=== PATIENT | male | born 1945 | race Caucasian/White ===

== ENCOUNTER 2017-04-29 13:02 | Observation (INO) ==
[2017-04-29] MEDS ORDERED: 0.9 % Sodium Chloride 1,000 ML IVC ONE (13:11)
--- NOTE | 2017-04-29 13:15 | Emergency Department Note ---
Disposition Clinical Impression: Syncope and collapse, Ataxia, Dehydration Disposition: Admitted As Inpatient Condition: Serious Referrals: Sonu Dudley MD [Primary Care Provider] - Forms: ED Satisfaction Letter Time of Disposition: 14:45 Dizziness HPI - General Chief Complaint: ED Syncope Stated Complaint: syncopal episode Time Seen by Provider: 04/29/17 13:12 Source: patient, family Limitations: no limitations Nursing Notes Reviewed: Yes Vital Signs Reviewed: Yes - History of Present Illness HPI Narrative: 72-year-old male presents to the emergency department with history of falls. He states that when he tries to stand he feels like he is falling towards one side and he has to constantly hold onto something to try to keep himself from falling. Patient has abrasions and contusions localized to the forehead. He is alert he is awake is able to follow commands. Patient reports that his symptoms of dizziness have been ongoing for approximately 2 weeks. Apparently 2 weeks ago he was able to drive a car, however now he reports that he will not drive a car. The passing out episodes have apparently been going on for approximately 2 months per patient Pt Subjective Complaint: dizziness, lightheadedness, difficulty walking Timing: gradual onset Description: lightheadedness, off-balance History of similar episodes: No History of trauma: Yes Severity: moderate Improves with: nothing Worsens with: movement, position Associated symptoms: Reports: denies other symptoms, ataxia. Denies: chest pain , confusion, diaphoresis, fever, chills, malaise, rash, shortness of breath, syncope, weakness, vision changes, nausea, vomiting, palpitations - Related Data Home Medications Medication Instructions Recorded Confirmed Albuterol Sulfate [Ventolin Hfa] 18 gm IH DAILY 04/29/17 04/29/17 Amlodipine Besylate 2.5 mg PO DAILY 04/29/17 04/29/17 Aspirin [Lo-Dose Aspirin EC] 81 mg PO DAILY 04/29/17 04/29/17 Docusate [Colace] 100 mg PO BID 04/29/17 04/29/17 Ferrous Sulfate [Iron] 325 mg PO BID 04/29/17 04/29/17 Gabapentin [Neurontin] 300 mg PO TID 04/29/17 04/29/17 Glimepiride [Amaryl] 2 mg PO 0800 04/29/17 04/29/17 Isosorbide MONOnitrate [Isosorbide 30 mg PO DAILY 04/29/17 04/29/17 Mononitrate] Lactulose 10 gm PO DAILY 04/29/17 04/29/17 Levothyroxine [Synthroid] 100 mcg PO 0630 04/29/17 04/29/17 Lisinopril/Hydrochlorothiazide 2 each PO DAILY 04/29/17 04/29/17 [Zestoretic 10-12.5 mg Tablet] Metformin HCl [Fortamet] 1,000 mg PO BID 04/29/17 04/29/17 Metoprolol Tartrate 25 mg PO BID 04/29/17 04/29/17 Oxycodone HCl/Acetaminophen 1 each PO QID 04/29/17 04/29/17 [Percocet 7.5-325 mg Tablet] Allergies Allergy/AdvReac Type Severity Reaction Status Date / Time No Known Allergies Allergy Unverified 12/20/15 11:30 All systems ED: reviewed and negative except as stated. Neurological: Reports: weakness, confusion, other (Patient complains of dizziness) Past Medical History - Past Medical History Medical history: Reports: asthma, COPD, coronary artery disease, diabetes, hyperlipidemia, hypertension, myocardial infarction, thyroid disease, other Psychiatric history: Reports: no psych history - Social History Smoking Status: Former smoker Smokeless Tobacco Status: No Alcohol use: Reports: occasionally Drug use: Reports: none Physical Exam - General Limitations: no limitations General appearance: alert - Head Head exam: other (Patient has abrasions to his forehead) - Eye Eye exam: Present: normal appearance - ENT ENT exam: normal exam, normal oropharynx, mucous membranes moist - Neck Neck exam: Present: normal inspection, full ROM, trachea midline - Chest Chest inspection: Present: normal inspection, symmetric chest wall rise - Respiratory Respiratory exam: Present: normal lung sounds bilaterally - Cardiovascular Cardiovascular exam: Present: regular rate, normal rhythm - Abdominal Exam Abdominal exam: Present: soft, Non-Tender, tenderness. Absent: distention, guarding, rebound, rigidity, normal bowel sounds, diminished bowel sounds, obturator sign - Extremities Exam Extremities exam: Present: normal inspection - Expanded Lower Extremity Exam Hip/Pelvis exam: Present: normal inspection - Back Exam Back exam: Present: normal inspection - Neurological Exam Neurological exam: Present: alert, oriented X3, CN II-XII intact, other ( Patient does have some mild weakness to the right upper extremity in comparison to the left) - Psychiatric Psychiatric exam: Present: flat affect - Skin Skin exam: Present: warm, dry, intact Course Vital Signs Temperature 98.3 F 04/29/17 13:03 Pulse Rate 86 04/29/17 13:03 Respiratory Rate 18 04/29/17 13:03 Blood Pressure 141/68 04/29/17 13:03 O2 Sat by Pulse Oximetry 100 04/29/17 13:03 Temperature 98.3 F 04/29/17 13:03 Pulse Rate 78 04/29/17 13:56 Respiratory Rate 18 04/29/17 13:56 Blood Pressure 116/59 04/29/17 13:56 O2 Sat by Pulse Oximetry 98 04/29/17 13:56 Oxygen Delivery Oxygen Delivery Nasal Cannula Dizziness - MDM Narrative Medical decision making narrative: I ordered ABG on the patient but he refused the blood gas even after I went in there to try to explain to him that his carbon monoxide level could be elevated and he still refused to allow us to draw it. - Differential Diagnosis Likely: benign paroxysmal positional vertigo, orthostatic hypotension, vertebral basilar insufficiency, cerebrovascular accident - Medical Records Medical records reviewed: Yes I reviewed the patient's medical records. - Lab Data Lab results reviewed: Yes I reviewed the patient's lab results. Result diagrams: 04/29/17 13:15 04/29/17 13:15 Lab Results 04/29/17 04/29/17 04/29/17 Range/Units 13:15 13:15 13:15 WBC 10.4 (4.3-11.1) K/mcL RBC 3.77 L (4.19-5.50) M/mcL Hgb 11.2 L (12.9-16.9) g/dL Hct 33.3 L (37.5-50.1) % MCV 88.3 (83.0-100.0) fL MCH 29.7 (28.0-33.3) pg MCHC 33.6 (31.6-35.5) g/dL RDW 13.8 (11.5-14.5) % Plt Count 354 (140-400) K/mcL MPV 9.3 L (9.4-12.4) fL Immature Gran % 0.5 (0-4) % Seg Neutrophils % 79.2 % Lymphocytes % 11.3 % Monocytes % 8.1 % Eosinophils % 0.5 % Basophils % 0.4 % Neutrophils # 8.2 (1.6-8.9) K/mcL Lymphocytes # 1.2 (0.6-4.6) K/mcL Monocytes # 0.8 (0.0-1.3) K/mcL Eosinophils # 0.1 (0.0-0.6) K/mcL Basophils # 0.0 (0.0-0.2) K/mcL PT 10.4 (9.4-12.1) Seconds INR 1.0 APTT 28.9 (26.0-36.0) Seconds Sodium 142 (136-145) mEq/L Potassium 3.9 (3.5-5.1) mEq/L Chloride 107 (98-107) mEq/L Carbon Dioxide 27 (23-29) mEq/L BUN 65 H (8-23) mg/dL Creatinine 1.84 H (0.70-1.30) mg/dL Est GFR ( Amer) 44 L (> 60) Est GFR (Non-Af Amer) 36 L (> 60) BUN/Creatinine Ratio 35 H (6-26) Glucose 124 H (70-105) mg/dL Calculated Osmolality 314 H (280-300) Lactic Acid (0.5-2.2) mmol/L Calcium 9.4 (8.6-10.3) mg/dL Ammonia (16-53) mcmol/L Troponin I < 0.03 (< 0.04) ng/mL B-Natriuretic Peptide (Less than 100) pg/mL Urine Color (Yellow) Urine Clarity (Clear) Urine pH (5.0-8.0) pH Units Ur Specific [place] (1.010-1.025) Urine Protein (Neg-Trace) mg/dL Urine Glucose (UA) (Normal) mg/dL Urine Ketones (Negative) mg/dL Urine Blood (Negative) Urine Nitrite (Negative) Urine Bilirubin (Negative) Urine Urobilinogen (Normal) mg/dL Ur Leukocyte Esterase (Negative) Ur Culture Indicated? (NO) 04/29/17 04/29/17 04/29/17 Range/Units 13:15 13:20 13:40 WBC (4.3-11.1) K/mcL RBC (4.19-5.50) M/mcL Hgb (12.9-16.9) g/dL Hct (37.5-50.1) % MCV (83.0-100.0) fL MCH (28.0-33.3) pg MCHC (31.6-35.5) g/dL RDW (11.5-14.5) % Plt Count (140-400) K/mcL MPV (9.4-12.4) fL Immature Gran % (0-4) % Seg Neutrophils % % Lymphocytes % % Monocytes % % Eosinophils % % Basophils % % Neutrophils # (1.6-8.9) K/mcL Lymphocytes # (0.6-4.6) K/mcL Monocytes # (0.0-1.3) K/mcL Eosinophils # (0.0-0.6) K/mcL Basophils # (0.0-0.2) K/mcL PT (9.4-12.1) Seconds INR APTT (26.0-36.0) Seconds Sodium (136-145) mEq/L Potassium (3.5-5.1) mEq/L Chloride (98-107) mEq/L Carbon Dioxide (23-29) mEq/L BUN (8-23) mg/dL Creatinine (0.70-1.30) mg/dL Est GFR ( Amer) (> 60) Est GFR (Non-Af Amer) (> 60) BUN/Creatinine Ratio (6-26) Glucose (70-105) mg/dL Calculated Osmolality (280-300) Lactic Acid 1.2 (0.5-2.2) mmol/L Calcium (8.6-10.3) mg/dL Ammonia 34 (16-53) mcmol/L Troponin I (< 0.04) ng/mL B-Natriuretic Peptide 73 (Less than 100) pg/mL Urine Color (Yellow) Urine Clarity (Clear) Urine pH (5.0-8.0) pH Units Ur Specific [place] (1.010-1.025) Urine Protein (Neg-Trace) mg/dL Urine Glucose (UA) (Normal) mg/dL Urine Ketones (Negative) mg/dL Urine Blood (Negative) Urine Nitrite (Negative) Urine Bilirubin (Negative) Urine Urobilinogen (Normal) mg/dL Ur Leukocyte Esterase (Negative) Ur Culture Indicated? (NO) 04/29/17 Range/Units 14:06 WBC (4.3-11.1) K/mcL RBC (4.19-5.50) M/mcL Hgb (12.9-16.9) g/dL Hct (37.5-50.1) % MCV (83.0-100.0) fL MCH (28.0-33.3) pg MCHC (31.6-35.5) g/dL RDW (11.5-14.5) % Plt Count (140-400) K/mcL MPV (9.4-12.4) fL Immature Gran % (0-4) % Seg Neutrophils % % Lymphocytes % % Monocytes % % Eosinophils % % Basophils % % Neutrophils # (1.6-8.9) K/mcL Lymphocytes # (0.6-4.6) K/mcL Monocytes # (0.0-1.3) K/mcL Eosinophils # (0.0-0.6) K/mcL Basophils # (0.0-0.2) K/mcL PT (9.4-12.1) Seconds INR APTT (26.0-36.0) Seconds Sodium (136-145) mEq/L Potassium (3.5-5.1) mEq/L Chloride (98-107) mEq/L Carbon Dioxide (23-29) mEq/L BUN (8-23) mg/dL Creatinine (0.70-1.30) mg/dL Est GFR ( Amer) (> 60) Est GFR (Non-Af Amer) (> 60) BUN/Creatinine Ratio (6-26) Glucose (70-105) mg/dL Calculated Osmolality (280-300) Lactic Acid (0.5-2.2) mmol/L Calcium (8.6-10.3) mg/dL Ammonia (16-53) mcmol/L Troponin I (< 0.04) ng/mL B-Natriuretic Peptide (Less than 100) pg/mL Urine Color Light Yellow (Yellow) Urine Clarity Clear (Clear) Urine pH 5.5 (5.0-8.0) pH Units Ur Specific [place] 1.010 (1.010-1.025) Urine Protein Negative (Neg-Trace) mg/dL Urine Glucose (UA) Normal (Normal) mg/dL Urine Ketones Negative (Negative) mg/dL Urine Blood Negative (Negative) Urine Nitrite Negative (Negative) Urine Bilirubin Negative (Negative) Urine Urobilinogen Normal (Normal) mg/dL Ur Leukocyte Esterase Negative (Negative) Ur Culture Indicated? NO (NO) - Radiology Data Radiology results reviewed: Yes I reviewed the patient's radiology results. No acute process on patient's CT of head without contrast chest x-ray shows a possible infiltrate in the right middle lobe of line per radiology reading. - EKG Data EKG attestation: Yes I reviewed and interpreted this EKG. EKG results narrative: EKG is a normal sinus rhythm EKG EKG shows normal: sinus rhythm Rate: normal
[2017-04-29 13:33] LABS: Basophils % 0.4 %; Eosinophils # 0.1 K/mcL (0.0-0.6); Eosinophils % 0.5 %; Hematocrit 33.3 % (37.5-50.1); Hemoglobin 11.2 g/dL (12.9-16.9); Immature Granulocytes % 0.5 % (0-4); Lymphocytes # 1.2 K/mcL (0.6-4.6); Lymphocytes % 11.3 %; Mean Corpuscular HGB Conc 33.6 g/dL (31.6-35.5); Mean Corpuscular Hemoglobin 29.7 pg (28.0-33.3); Mean Corpuscular Volume 88.3 fL (83.0-100.0); Mean Platelet Volume 9.3 fL (9.4-12.4); Monocytes # 0.8 K/mcL (0.0-1.3); Monocytes % 8.1 %; Neutrophils # 8.2 K/mcL (1.6-8.9); Platelet Count 354 K/mcL (140-400); Red Blood Count 3.77 M/mcL (4.19-5.50); Red Cell Distribution Width 13.8 % (11.5-14.5); Segmented Neutrophils % 79.2 %
[2017-04-29 13:34] LABS: Prothrombin Time 10.4 Seconds (9.4-12.1)
[2017-04-29 13:37] LABS: Activated Partial Thrombo Time 28.9 Seconds (26.0-36.0)
[2017-04-29 13:42] LABS: BUN/Creatinine Ratio 35 (6-26); Blood Urea Nitrogen 65 mg/dL (8-23); Calcium 9.4 mg/dL (8.6-10.3); Carbon Dioxide 27 mEq/L (23-29); Chloride 107 mEq/L (98-107); Glucose 124 mg/dL (70-105); Osmolality,Calculated 314 (280-300); Potassium 3.9 mEq/L (3.5-5.1); Sodium 142 mEq/L (136-145); eGFR For African Americans 44 (> 60); eGFR For Non-African Americans 36 (> 60)
[2017-04-29 13:46] LABS: Troponin I < 0.03 ng/mL (< 0.04)
[2017-04-29 14:22] LABS: Bilirubin,Urine Negative (Negative); Blood,Urine Negative (Negative); Clarity,Urine Clear (Clear); Color,Urine Light Yellow (Yellow); Glucose,Urine (UA) Normal (Normal); Ketones,Urine Negative (Negative); Leukocyte Esterase,Urine Negative (Negative); Nitrite,Urine Negative (Negative); PH,Urine 5.5 pH Units (5.0-8.0); Protein,Urine Negative (Neg-Trace); Urobilinogen,Urine Normal (Normal)
[2017-04-29] MEDS ORDERED: Naloxone 0.4 MG/ML INJ IVP PRN ×2 (14:38→16:53)
[2017-04-29] MEDS ORDERED: 0.9 % Sodium Chloride 1,000 ML IVC SCH (14:45)
[2017-04-29] MEDS ORDERED: cefTRIAXone 2,000 MG in Water for inj. (sterile) 20 ML IVP SCH (15:00)
[2017-04-29] MEDS: *HR* OxyCODONE/APAP 7.5/325 TABLET PO SCH (17:25)
[2017-04-29] MEDS: Gabapentin 300 MG CAPSULE PO SCH ×2 (17:26→19:52)
[2017-04-29] MEDS: 0.9 % Sodium Chloride 1,000 ML IVC SCH (17:27)
[2017-04-29] MEDS ORDERED: Albuterol 2.5 MG/3 ML NEBULIZER ONE (19:04)
[2017-04-29] MEDS: Albuterol 2.5 MG/3 ML NEBULIZER IH PRN (19:22)
--- NOTE | 2017-04-29 20:45 | Electrocardiograph Report ---
[address] [place], [place] [address] Test Date: 2017-04-29 Pat Name: Ashlyn Hernández Department: [id number] Room: [facility] Gender: M [employer] Supervisor: [id number] : 1945 Requested By: Edith Zaman Order Number: [id number] Reading MD: Moises Dick MD Measurements Intervals [place] Rate: 69 P: 83 ME: 179 QRS: 14 QRSD: 102 T: 43 QT: 358 QTc: 377 Interpretive Statements SINUS RHYTHM LOW QRS VOLTAGE IN PRECORDIAL LEADS BASELINE ARTIFACT Electronically Signed On 04-29-2017 20:43:30 EDT by Moises Dick MD
[2017-04-29] MEDS ORDERED: *HR* Metformin 500 MG TABLET PO SCH (21:00)
[2017-04-30] MEDS: *HR* OxyCODONE/APAP 7.5/325 TABLET PO SCH ×6 (01:11→20:36)
[2017-04-30] MEDS: 0.9 % Sodium Chloride 1,000 ML IVC SCH (04:37)
[2017-04-30] MEDS: Albuterol 2.5 MG/3 ML NEBULIZER IH PRN ×3 (06:16→21:54)
[2017-04-30] MEDS: *HR* Metformin 500 MG TABLET PO SCH ×2 (08:43→17:34)
[2017-04-30] MEDS: *HR* Glimepiride 2 MG TABLET PO SCH (08:43)
[2017-04-30] MEDS: Isosorbide MONOnitrate (24 HR) 30 MG TAB.ER.24H PO SCH (08:44)
[2017-04-30] MEDS: Lactulose Oral Soln 20 GM/30 ML UDC PO SCH (08:45)
[2017-04-30] MEDS: Gabapentin 300 MG CAPSULE PO SCH ×3 (08:46→20:35)
[2017-04-30] MEDS ORDERED: amLODIPine 5 MG TABLET PO SCH (09:00)
[2017-04-30] MEDS ORDERED: Aspirin Enteric Coated 81 MG Tablet PO SCH (09:00)
--- NOTE | 2017-04-30 12:07 | Internal Med History&Physical ---
Date of Encounter: 04/30/17 Time of Encounter: 11:40 Assessment and Plan (1) Near syncope Current visit: Yes Status: Acute IV fluids have been ordered. Will check orthostatic vital signs in a.m. (2) Acute on chronic renal failure Current visit: Yes Status: Acute Will hold diuretics and give IV fluids. Recheck labs and do orthostatic vital signs in a.m. Qualifiers: Acute renal failure type: unspecified Chronic kidney disease stage: stage 3 (moderate) Qualified Code(s): N17.9 - Acute kidney failure, unspecified; N18.3 - Chronic kidney disease, stage 3 (moderate); N18.3 - Chronic kidney disease, stage 3 (moderate) (3) Anemia Current visit: Yes Status: Chronic Will order iron studies in a.m. Qualifiers: Anemia type: unspecified type Qualified Code(s): D64.9 - Anemia, unspecified (4) Hypertension Current visit: Yes Status: Acute Will hold Zestoretic because of acute azotemia and monitor blood pressure. Qualifiers: Hypertension type: essential hypertension Qualified Code(s): I10 - Essential (primary) hypertension (5) Neutrophilia Current visit: Yes Status: Acute Chest x-ray showed possible right lower lobe infiltrate. Continue Rocephin started in emergency room. Internal Medicine - H&P: HPI Chief complaint: Lightheadedness Admitted From: Emergency Dept Plans for Post Hospital Care: Home History of present illness: Mr. Hernández is a 72 year old male who came to emergency room stating he had experienced lightheadedness on arising from a seated position with sensation of fevers and chills approximately 2 hours after receiving orthopedic injections into his right shoulder area on April 25. He was evaluated in emergency room and found to have acute on chronic renal insufficiency and slight left shift on WBC differential. He was admitted to [facility] floor for ongoing care needs. He denies unusual cough or any vomiting or diarrhea. He has had no recent change in hypertension medications. Cardiovascular history is significant for hypertension but no known AL heart failure angina DVT or pulmonary embolus. Neurologic history is pertinent for diabetic peripheral neuropathy but no large distribution strokes or seizures. Past Med Surg Social Fam HX - Past Medical History Medical history: asthma, COPD, coronary artery disease, diabetes, hyperlipidemia , hypertension, myocardial infarction, thyroid disease, other Psychiatric history: no psych history - Social History Smoking Status: Former smoker Smokeless Tobacco Status: No Alcohol use: occasionally Drug use: none Internal Medicine - H&P: Meds Albuterol Sulfate [Ventolin Hfa] 18 gm IH DAILY 04/29/17 [History] Amlodipine Besylate 2.5 mg PO DAILY 04/29/17 [History] Aspirin [Lo-Dose Aspirin EC] 81 mg PO DAILY 04/29/17 [History] Docusate [Colace] 100 mg PO BID 04/29/17 [History] Ferrous Sulfate [Iron] 325 mg PO BID 04/29/17 [History] Gabapentin [Neurontin] 300 mg PO TID 04/29/17 [History] Glimepiride [Amaryl] 2 mg PO 0800 04/29/17 [History] Isosorbide MONOnitrate [Isosorbide Mononitrate] 30 mg PO DAILY 04/29/17 [History ] Lactulose 10 gm PO DAILY 04/29/17 [History] Levothyroxine [Synthroid] 100 mcg PO 0630 04/29/17 [History] Lisinopril/Hydrochlorothiazide [Zestoretic 10-12.5 mg Tablet] 2 each PO DAILY [History] Metformin HCl [Fortamet] 1,000 mg PO BID 04/29/17 [History] Metoprolol Tartrate 25 mg PO BID 04/29/17 [History] Oxycodone HCl/Acetaminophen [Percocet 7.5-325 mg Tablet] 1 each PO QID 04/29/17 [History] 3 Allergy/AdvReac Type Severity Reaction Status Date / Time No Known Allergies Allergy Unverified 12/20/15 11:30 All Systems PM: A 10-system review of systems was performed and is negative for pertinent findings except as documented above in the HPI. Review of systems: Gen.: He states his weight has decreased approximately 10 pounds in the past year Cardiovascular: As per history of present illness Respiratory: He smoked from approximately age [age] up to 2-1/2 packs per day. Has a diagnosis of COPD and wears oxygen / GI: He denies disorders of his liver gallbladder or exocrine pancreas : He has been diagnosed with chronic kidney disease and follows with a [place] safety and health consultant. He denies other kidney bladder or prostate disorders Neurologic: As per history of present illness Endocrine: He was diagnosed with DM 2 approximately 2012. He has hypothyroidism but denies hyperlipidemia Hematology/oncology: He has anemia and uses oral iron supplement. Anemia testing 02/20/2017 showed no fracture deficiency. He denies internal malignancy Psychiatric: He has depression but denies anxiety or other mental health issues [place] skeletal: He had left knee surgery many years ago. He denies other bone joint or muscle disorders. - Constitutional Vitals: Temp Pulse Resp BP Pulse Ox 98.9 F 77 22 122/64 97 04/30/17 11:25 04/30/17 11:25 04/30/17 11:25 04/30/17 11:25 04/30/17 11:25 Exam: Gen.: He is a well-developed overweight male sitting on the side of bed who appears in no acute distress. He denies pain or dyspnea HEENT: Head is normocephalic. He has areas of abrasion on his forehead and bridge of the nose from a fall on the carpet at home. Eyes: EOMI. There is no scleral icterus. Mouth: Mucosa is moist. Neck: Supple and nontender. There is no thyromegaly or adenopathy noted. Heart: regular without murmurs gallops or ectopics Lungs: No wheezes or crackles are heard. Abdomen: Soft and nontender. No masses or guarding are noted. Exam is limited because he is in the seated position. Extremities: There is no cyanosis edema or clubbing noted. Dorsalis pedis and posttibial pulses are 1-2 over 2 bilaterally. Neurologic: Mental status: He is talkative and a good historian. Cranial nerves : Smile is symmetric. Forehead wrinkles bilaterally. Tongue protrudes midline. EOMI. Motor: There is no pronator drift. Cerebellar: Finger to nose is intact bilaterally. Skin: Warm and dry Internal Med - H&P Results - Labs CBC & Chem 7: 04/29/17 13:15 04/29/17 13:15
[2017-04-30] MEDS: 0.45 % Sodium Chloride w/KCl 20 MEQ/1,000 ML MLS IVC SCH ×2 (14:07→22:10)
[2017-04-30] MEDS ORDERED: cefTRIAXone 2,000 MG in Water for inj. (sterile) 20 ML IVP SCH (15:00)
[2017-04-30] MEDS: Lactobacillus 1 EACH CAP.SPRINK PO SCH (20:35)
[2017-05-01] MEDS: Albuterol 2.5 MG/3 ML NEBULIZER IH PRN (04:50)
[2017-05-01] MEDS ORDERED: *HR* Enoxaparin 40 MG/0.4 ML SYRINGE SQ SCH (06:00)
[2017-05-01 06:03] LABS: Basophils # 0.1 K/mcL (0.0-0.2); Basophils % 0.5 %; Eosinophils # 0.6 K/mcL (0.0-0.6); Eosinophils % 4.1 %; Hematocrit 33.5 % (37.5-50.1); Hemoglobin 11.2 g/dL (12.9-16.9); Immature Granulocytes % 0.3 % (0-4); Lymphocytes # 1.5 K/mcL (0.6-4.6); Lymphocytes % 10.8 %; Mean Corpuscular HGB Conc 33.4 g/dL (31.6-35.5); Mean Corpuscular Hemoglobin 29.7 pg (28.0-33.3); Mean Corpuscular Volume 88.9 fL (83.0-100.0); Mean Platelet Volume 8.9 fL (9.4-12.4); Monocytes % 7.3 %; Neutrophils # 10.4 K/mcL (1.6-8.9); Platelet Count 348 K/mcL (140-400); Red Blood Count 3.77 M/mcL (4.19-5.50); Red Cell Distribution Width 13.6 % (11.5-14.5)
[2017-05-01] MEDS: 0.45 % Sodium Chloride w/KCl 20 MEQ/1,000 ML MLS IVC SCH (06:42)
[2017-05-01 07:28] VITALS: BP 192/71
[2017-05-01 07:40] LABS: BUN/Creatinine Ratio 28 (6-26); Blood Urea Nitrogen 37 mg/dL (8-23); Calcium 9.4 mg/dL (8.6-10.3); Carbon Dioxide 22 mEq/L (23-29); Chloride 106 mEq/L (98-107); Glucose 102 mg/dL (70-105); Osmolality,Calculated 293 (280-300); Potassium 4.5 mEq/L (3.5-5.1); Sodium 137 mEq/L (136-145); eGFR For African Americans > 60 (> 60); eGFR For Non-African Americans 54 (> 60)
[2017-05-01 09:32] LABS: % Iron Saturation 24 % (20-55); Ferritin 89 ng/ml (20-250); Iron 78 mcg/dL (65-175); Transferrin 237 mg/dL (203-362)
[2017-05-01] MEDS: Lactulose Oral Soln 20 GM/30 ML UDC PO SCH (09:36)
[2017-05-01] MEDS: Gabapentin 300 MG CAPSULE PO SCH (09:37)
[2017-05-01] MEDS: *HR* Metformin 500 MG TABLET PO SCH (09:37)
[2017-05-01] MEDS: *HR* OxyCODONE/APAP 7.5/325 TABLET PO SCH (09:37)
[2017-05-01] MEDS: Lactobacillus 1 EACH CAP.SPRINK PO SCH (09:37)
[2017-05-01] MEDS: Isosorbide MONOnitrate (24 HR) 30 MG TAB.ER.24H PO SCH (09:38)
[2017-05-01] MEDS: *HR* Glimepiride 2 MG TABLET PO SCH (09:38)
--- NOTE | 2017-05-01 09:54 | Discharge Summary ---
Date of Encounter: 05/01/17 Time of Encounter: 09:40 - Discharge Diagnosis (1) Near syncope Priority: Primary Status: Acute (2) Acute on chronic renal failure Priority: Secondary Status: Acute Qualifiers: Acute renal failure type: unspecified Chronic kidney disease stage: stage 3 (moderate) Qualified Code(s): N17.9 - Acute kidney failure, unspecified; N18.3 - Chronic kidney disease, stage 3 (moderate); N18.3 - Chronic kidney disease, stage 3 (moderate) (3) Anemia Priority: Secondary Status: Chronic Qualifiers: Anemia type: unspecified type Qualified Code(s): D64.9 - Anemia, unspecified (4) Hypertension Priority: Secondary Status: Chronic Qualifiers: Hypertension type: essential hypertension Qualified Code(s): I10 - Essential (primary) hypertension (5) Neutrophilia Priority: Secondary Status: Acute Hospital course: Mr. Hernández is a 72 year old male who came to emergency room stating he had experienced lightheadedness on arising from a seated position with sensation of fevers and chills approximately 2 hours after receiving orthopedic injections into his right shoulder area on April 25. He was evaluated in emergency room and found to have acute on chronic renal insufficiency and slight left shift on WBC differential. He was admitted to [facility] floor for ongoing care needs. Initial orders were written by the emergency room physician. I saw him on April 30 and performed a history and physical. IV fluids were given and Zestoretic and amlodipine were held. There was significant improvement in his azotemia with BUN and creatinine decreasing to 37 and 1.31 respectively by day of discharge with estimated GFR 54. He will remain off Zestoretic at discharge. Metoprolol will be increased to 50 mg twice a day. He was started empirically on Rocephin for possible pneumonia. WBC ingrid slightly to 13.5 on day of discharge. He will continue with Ceftin, Zithromax, and probiotic for 3 additional days at discharge. Anemia testing showed iron 78, transferrin saturation 24%, transferrin 237, and ferritin 89. His PCP and/or fire watcher can determine the need for ongoing oral iron replacement. On May 01 he felt stable for discharge home. He will follow with his PCP Dr. Dudley within 1 week. - Time Spent with Patient Total time spent providing and/or coordinating discharge services: - Discharge Medications Prescriptions: Cefuroxime PO [Ceftin] 500 mg PO Q12HR #6 tablet Azithromycin [Zithromax] 250 mg PO DAILY #3 tablet Lactobacillus [Culturelle] 1 each PO BID #6 cap.[email or web address] Home Medications: Albuterol Sulfate [Ventolin Hfa] 18 gm IH DAILY 04/29/17 [History] Amlodipine Besylate 2.5 mg PO DAILY 04/29/17 [History] Aspirin [Lo-Dose Aspirin EC] 81 mg PO DAILY 04/29/17 [History] Docusate [Colace] 100 mg PO BID 04/29/17 [History] Ferrous Sulfate [Iron] 325 mg PO BID 04/29/17 [History] Gabapentin [Neurontin] 300 mg PO TID 04/29/17 [History] Glimepiride [Amaryl] 2 mg PO 0800 04/29/17 [History] Isosorbide MONOnitrate [Isosorbide Mononitrate] 30 mg PO DAILY 04/29/17 [History ] Lactulose 10 gm PO DAILY 04/29/17 [History] Levothyroxine [Synthroid] 100 mcg PO 0630 04/29/17 [History] Metformin HCl [Fortamet] 1,000 mg PO BID 04/29/17 [History] Oxycodone HCl/Acetaminophen [Percocet 7.5-325 mg Tablet] 1 each PO QID 04/29/17 [History] Azithromycin [Zithromax] 250 mg PO DAILY #3 tablet 05/01/17 [Rx] Cefuroxime PO [Ceftin] 500 mg PO Q12HR #6 tablet 05/01/17 [Rx] Lactobacillus [Culturelle] 1 each PO BID #6 cap.[email or web address] 05/01/17 [Rx] Metoprolol Tartrate 50 mg PO BID #0 05/01/17 [Rx] Allergies/Adverse Reactions: 3 Allergy/AdvReac Type Severity Reaction Status Date / Time No Known Allergies Allergy Unverified 12/20/15 11:30 Date of admission: 04/29/17 14:53 Primary care physician: Sonu Dudley MD - Constitutional Vitals: Temp Pulse Resp BP Pulse Ox 98.3 F 93 16 192/71 99 05/01/17 07:24 05/01/17 07:24 05/01/17 07:24 05/01/17 07:24 05/01/17 07:24 - Patient Status Disposition: Home, Self-Care Condition: Serious Functional capacity at discharge: independent ambulation Overall status at discharge: patient is progressing back to baseline - Discharge Instructions Follow Up With: Sonu Dudley MD [Primary Care Provider] - 1 week - Diet and Activity Activity: resume usual activities as tolerated, wear oxygen at all times Diet: low fat, low cholesterol
== END 2017-05-01 10:50 | disposition home or self-care (01) ==
LOC: EMEROOPIK 13:02 → INPPIK 13:02
PROVIDERS: ADMIT Internal Medicine; ATTEND Internal Medicine

== ENCOUNTER 2019-03-20 09:29 | Inpatient (IN) ==
[2019-03-20] MEDS ORDERED: Ipratropium/Albuterol Neb 3 ML IH ONE (09:37)
[2019-03-20] MEDS ORDERED: methylPREDNISolone 125 MG/2 ML VIAL IVP ONE (09:37)
[2019-03-20 10:00] LABS: Basophils % 0.2 %; Eosinophils % 1.5 %; Hematocrit 30.5 % (37.5-50.1); Hemoglobin 10.3 g/dL (12.9-16.9); Immature Granulocytes % 0.4 % (0-4); Lymphocytes # 0.6 K/mcL (0.6-4.6); Lymphocytes % 3.6 %; Mean Corpuscular HGB Conc 33.8 g/dL (31.6-35.5); Mean Corpuscular Hemoglobin 29.1 pg (28.0-33.3); Mean Corpuscular Volume 86.2 fL (83.0-100.0); Mean Platelet Volume 8.8 fL (9.4-12.4); Monocytes # 0.8 K/mcL (0.0-1.3); Monocytes % 4.9 %; Neutrophils # 14.5 K/mcL (1.6-8.9); Platelet Count 346 K/mcL (140-400); Red Blood Count 3.54 M/mcL (4.19-5.50); Red Cell Distribution Width 13.7 % (11.5-14.5); Segmented Neutrophils % 89.4 %; White Blood Count 16.2 K/mcL (4.3-11.1)
[2019-03-20 10:02] LABS: VBG HCO3 32 mEq/L (21-27); VBG PCO2 59 mmHg (41-51); VBG PH 7.34 pH Units (7.32-7.42); VBG PO2 27 mmHg (25-50)
[2019-03-20 10:10] LABS: Eosinophils # 0.2 K/mcL (0.0-0.6)
[2019-03-20 10:11] LABS: INR 1.1; Prothrombin Time 12.2 Seconds (9.4-12.1)
[2019-03-20 10:16] LABS: Alanine Aminotransferase 17 Units/L (7-52); Albumin 3.8 g/dL (3.5-5.7); Albumin/Globulin Ratio 1.3 (1.1-2.2); Alkaline Phosphatase 58 Units/L (34-104); Aspartate Amino Transferase 18 Units/L (13-39); BUN/Creatinine Ratio 12 (6-26); Bilirubin,Direct 0.1 mg/dL (0.0-0.2); Bilirubin,Indirect 0.4 mg/dL (0.0-1.0); Bilirubin,Total 0.5 mg/dL (0.3-1.0); Blood Urea Nitrogen 15 mg/dL (8-23); Calcium 9.9 mg/dL (8.6-10.3); Carbon Dioxide 32 mEq/L (23-29); Chloride 97 mEq/L (98-107); Globulin 2.9 g/dL (2.4-3.5); Glucose 148 mg/dL (70-105); Osmolality,Calculated 288 (280-300); Potassium 3.4 mEq/L (3.5-5.1); Sodium 137 mEq/L (136-145); Total Protein 6.7 g/dL (6.4-8.9); eGFR For African Americans > 60 (> 60); eGFR For Non-African Americans 54 (> 60)
[2019-03-20 10:18] LABS: Troponin I < 0.03 ng/mL (< 0.04)
[2019-03-20] MEDS ORDERED: levoFLOXacin 750 MG/150 ML 750 MG/150 ML BAG IVPB ONE (10:23)
[2019-03-20 11:45] LABS: ABG Base Excess 6 mEq/L (-2 to 3); ABG HCO3 32 mEq/L (21-27); ABG Oxygen Saturation 90 % (95-98); ABG PCO2 49 mmHg (35-45); ABG PH 7.42 pH Units (7.32-7.45); ABG PO2 59 mmHg (85-104); ABG TCO2 33 mEq/L (20-26)
[2019-03-20] MEDS ORDERED: Albuterol 2.5 MG/3 ML NEBULIZER IH ONE (11:54)
[2019-03-20] MEDS ORDERED: Ondansetron ODT 4 MG TAB.RAPDIS SL PRN (13:11)
[2019-03-20] MEDS ORDERED: Naloxone 0.4 MG/ML INJ IVP PRN (13:11)
[2019-03-20] MEDS ORDERED: Mag Hydrox/Al Hydrox/Simeth 30 ML UDC PO PRN (13:11)
[2019-03-20] MEDS ORDERED: *HR* Dextrose 50 % in Water (Syg) 50 ML SYRINGE IVP PRN (13:16)
[2019-03-20] MEDS ORDERED: Dextrose Gel 15 GM/37.5 ML TUBE PO PRN ×2 (13:16)
[2019-03-20] MEDS ORDERED: D5% in Water 1,000 ML IVC PRN (13:16)
[2019-03-20] MEDS ORDERED: cefTRIAXone 2,000 MG in Water for inj. (sterile) 20 ML IVPB ONE (13:21)
[2019-03-20] MEDS ORDERED: *HR* Dextrose 50 % in Water (Vial) 50 ML VIAL IVP PRN (13:30)
[2019-03-20] MEDS: 0.9 % Sodium Chloride 1,000 ML IV SCH (14:15)
[2019-03-20] MEDS: Pregabalin 50 MG CAPSULE PO SCH ×2 (14:22→20:41)
[2019-03-20] MEDS: *HR* OxyCODONE/APAP 7.5/325 TABLET PO SCH ×3 (14:22→20:45)
[2019-03-20] MEDS: Azithromycin 500 MG in 0.9 % Sodium Chloride 250 ML IVPB SCH (14:22)
[2019-03-20] MEDS ORDERED: Gabapentin 400 MG CAPSULE PO SCH (15:00)
[2019-03-20] MEDS ORDERED: Ipratropium Neb 0.5 MG NEBULIZER IH SCH (16:00)
[2019-03-20] MEDS: Insulin LISPRO 300 UNITS/3 ML VIAL SQ SCH ×2 (16:50→20:42)
[2019-03-20] MEDS: Ipratropium/Albuterol Neb 3 ML IH SCH ×2 (16:54→20:50)
[2019-03-20] MEDS ORDERED: hydroCHLOROthiazide 25 MG TABLET PO SCH (17:00)
[2019-03-20 17:15] LABS: Estimated Average Glucose 140 mg/dl
[2019-03-20] MEDS: Lisinopril 20 MG TABLET PO SCH (20:40)
[2019-03-20] MEDS: Baclofen 10 MG TABLET PO SCH (20:40)
[2019-03-20] MEDS: Famotidine 20 MG TABLET PO SCH (20:41)
[2019-03-20 21:20] LABS: Bilirubin,Urine Negative (Negative); Blood,Urine Trace-intact (Negative); Clarity,Urine Clear (Clear); Color,Urine Yellow (Yellow); Glucose,Urine (UA) >=1000 mg/dL (Normal); Ketones,Urine Trace mg/dL (Negative); Leukocyte Esterase,Urine Negative (Negative); Nitrite,Urine Negative (Negative); PH,Urine 5.5 pH Units (5.0-8.0); Protein,Urine 100 mg/dL (Neg-Trace); Urobilinogen,Urine Normal (Normal)
[2019-03-20 21:30] LABS: Hyaline Casts,Urine Few per lpf (None-Few); Mucus,Urine Few per lpf (Few); Squamous Epithelial Cell,Urine Few per lpf (None-Few)
[2019-03-20 23:24] LABS: Adenovirus Not Detected (Not Detect); Bordetella Pertussis Not Detected (Not Detect); Coronavirus 229E Not Detected (Not Detect); Coronavirus HKU1 Not Detected (Not Detect); Coronavirus NL63 Not Detected (Not Detect); Coronavirus OC43 Not Detected (Not Detect); Human Metapneumovirus Not Detected (Not Detect); Human Rhinovirus/Enterovirus Not Detected (Not Detect); Influenza A Subtype 2009 H1 Not Detected (Not Detect); Influenza B Not Detected (Not Detect); Parainfluenza Virus 1 Not Detected (Not Detect); Parainfluenza Virus 3 Not Detected (Not Detect); Parainfluenza Virus 4 Not Detected (Not Detect); Respiratory Syncytial Virus Not Detected (Not Detect)
[2019-03-20 23:25] LABS: Chlamydophila pneumoniae Not Detected (Not Detect); Mycoplasma pneumoniae Not Detected (Not Detect); Parainfluenza Virus 2 Not Detected (Not Detect)
[2019-03-21] MEDS: Ipratropium/Albuterol Neb 3 ML IH SCH ×4 (03:56→22:38)
[2019-03-21] MEDS: 0.9 % Sodium Chloride 1,000 ML IV SCH ×2 (04:18→22:48)
[2019-03-21] MEDS: *HR* Enoxaparin 40 MG/0.4 ML SYRINGE SQ SCH (06:45)
[2019-03-21 07:20] LABS: Basophils % 0.1 %; Hematocrit 29.7 % (37.5-50.1); Immature Granulocytes % 0.8 % (0-4); Lymphocytes # 0.6 K/mcL (0.6-4.6); Lymphocytes % 2.8 %; Mean Corpuscular HGB Conc 33.7 g/dL (31.6-35.5); Mean Corpuscular Hemoglobin 29.3 pg (28.0-33.3); Mean Corpuscular Volume 87.1 fL (83.0-100.0); Mean Platelet Volume 9.3 fL (9.4-12.4); Monocytes % 4.5 %; Platelet Count 377 K/mcL (140-400); Red Blood Count 3.41 M/mcL (4.19-5.50); Red Cell Distribution Width 13.8 % (11.5-14.5); Segmented Neutrophils % 91.8 %; White Blood Count 22.2 K/mcL (4.3-11.1)
[2019-03-21 07:27] LABS: Neutrophils # 20.4 K/mcL (1.6-8.9)
[2019-03-21 07:55] LABS: Calcium 9.8 mg/dL (8.6-10.3); Potassium 4.3 mEq/L (3.5-5.1)
[2019-03-21] MEDS: *HR* OxyCODONE/APAP 7.5/325 TABLET PO SCH ×4 (08:21→20:48)
[2019-03-21] MEDS: Lactulose Oral Soln 20 GM/30 ML UDC PO SCH (08:21)
[2019-03-21] MEDS: Pregabalin 50 MG CAPSULE PO SCH ×3 (08:21→20:45)
[2019-03-21] MEDS: Insulin LISPRO 300 UNITS/3 ML VIAL SQ SCH ×4 (08:21→20:45)
[2019-03-21] MEDS: Famotidine 20 MG TABLET PO SCH ×2 (08:22→20:45)
[2019-03-21] MEDS: Cyanocobalamin (B-12) 1,000 MCG TABLET PO SCH (08:22)
[2019-03-21] MEDS: Aspirin Enteric Coated 81 MG Tablet PO SCH (08:22)
[2019-03-21] MEDS: Finasteride 5 MG TABLET PO SCH (08:22)
[2019-03-21] MEDS: Isosorbide MONOnitrate (24 HR) 30 MG TAB.ER.24H PO SCH (08:22)
[2019-03-21] MEDS: predniSONE 20 MG TABLET PO SCH (08:22)
[2019-03-21] MEDS: amLODIPine 5 MG TABLET PO SCH (08:22)
[2019-03-21] MEDS: BuPROPion SR (12 HR) 150 MG TABLET PO SCH (08:22)
[2019-03-21] MEDS ORDERED: NON-FORMULARY MEDICATION 1 EACH EACH (Amlodipine Besylate 2.5 MG) PO SCH (09:00)
[2019-03-21] MEDS ORDERED: Dextrose Gel 15 GM/37.5 ML TUBE PO PRN (09:45)
[2019-03-21] MEDS: cefTRIAXone 2,000 MG in Water for inj. (sterile) 20 ML IVPB SCH (14:31)
[2019-03-21] MEDS: Azithromycin 500 MG in 0.9 % Sodium Chloride 250 ML IVPB SCH (14:32)
[2019-03-21] MEDS: Baclofen 10 MG TABLET PO SCH (20:45)
[2019-03-22] MEDS: Ipratropium/Albuterol Neb 3 ML IH SCH ×4 (04:39→22:26)
[2019-03-22] MEDS: *HR* Enoxaparin 40 MG/0.4 ML SYRINGE SQ SCH (05:57)
[2019-03-22] MEDS: Lactulose Oral Soln 20 GM/30 ML UDC PO SCH (09:22)
[2019-03-22] MEDS: Lisinopril 20 MG TABLET PO SCH (09:23)
[2019-03-22] MEDS: *HR* OxyCODONE/APAP 7.5/325 TABLET PO SCH ×4 (09:23→23:58)
[2019-03-22] MEDS: Famotidine 20 MG TABLET PO SCH ×2 (09:23→20:02)
[2019-03-22] MEDS: amLODIPine 5 MG TABLET PO SCH (09:24)
[2019-03-22] MEDS: Pregabalin 50 MG CAPSULE PO SCH ×3 (09:24→20:04)
[2019-03-22] MEDS: Finasteride 5 MG TABLET PO SCH (09:24)
[2019-03-22] MEDS: Cyanocobalamin (B-12) 1,000 MCG TABLET PO SCH (09:24)
[2019-03-22] MEDS: Isosorbide MONOnitrate (24 HR) 30 MG TAB.ER.24H PO SCH (09:24)
[2019-03-22] MEDS: BuPROPion SR (12 HR) 150 MG TABLET PO SCH (09:24)
[2019-03-22] MEDS: Aspirin Enteric Coated 81 MG Tablet PO SCH (09:25)
[2019-03-22] MEDS: predniSONE 20 MG TABLET PO SCH (09:25)
[2019-03-22] MEDS: Insulin LISPRO 300 UNITS/3 ML VIAL SQ SCH ×4 (09:32→20:42)
[2019-03-22] MEDS: cefTRIAXone 2,000 MG in Water for inj. (sterile) 20 ML IVPB SCH (13:36)
[2019-03-22] MEDS: Azithromycin 500 MG in 0.9 % Sodium Chloride 250 ML IVPB SCH (13:38)
[2019-03-22] MEDS: 0.9 % Sodium Chloride 1,000 ML IV SCH (13:48)
[2019-03-22] MEDS ORDERED: Furosemide 40 MG/4 ML VIAL IVP SCH (14:59)
[2019-03-22 15:53] LABS: Hematocrit 26.9 % (37.5-50.1); Hemoglobin 8.8 g/dL (12.9-16.9); Mean Corpuscular HGB Conc 32.7 g/dL (31.6-35.5); Mean Corpuscular Volume 91.8 fL (83.0-100.0); Platelet Count 347 K/mcL (140-400); Red Blood Count 2.93 M/mcL (4.19-5.50); Red Cell Distribution Width 14.3 % (11.5-14.5); White Blood Count 14.7 K/mcL (4.3-11.1)
[2019-03-22 16:09] LABS: Calcium 8.6 mg/dL (8.6-10.3); Potassium 4.6 mEq/L (3.5-5.1)
[2019-03-22] MEDS: MethylPREDNISolone 40 MG/ML VIAL IVP SCH ×2 (16:12→23:58)
[2019-03-22] MEDS ORDERED: 0.9 % Sodium Chloride 500 ML IVC ONE (19:36)
[2019-03-22] MEDS: Baclofen 10 MG TABLET PO SCH (20:02)
[2019-03-23] MEDS: Ipratropium/Albuterol Neb 3 ML IH SCH ×3 (04:33→16:49)
[2019-03-23] MEDS: *HR* Heparin 5,000 UNIT/ML VIAL SQ SCH ×3 (05:34→20:21)
[2019-03-23] MEDS: Insulin LISPRO 300 UNITS/3 ML VIAL SQ SCH ×4 (08:09→21:18)
[2019-03-23] MEDS: Finasteride 5 MG TABLET PO SCH (08:12)
[2019-03-23] MEDS: BuPROPion SR (12 HR) 150 MG TABLET PO SCH (08:12)
[2019-03-23] MEDS: Cyanocobalamin (B-12) 1,000 MCG TABLET PO SCH (08:12)
[2019-03-23] MEDS: Isosorbide MONOnitrate (24 HR) 30 MG TAB.ER.24H PO SCH (08:12)
[2019-03-23] MEDS: Aspirin Enteric Coated 81 MG Tablet PO SCH (08:12)
[2019-03-23] MEDS: Pregabalin 50 MG CAPSULE PO SCH ×2 (08:12→15:24)
[2019-03-23] MEDS: Famotidine 20 MG TABLET PO SCH ×2 (08:12→20:17)
[2019-03-23] MEDS: amLODIPine 5 MG TABLET PO SCH (08:13)
[2019-03-23] MEDS: Lactulose Oral Soln 20 GM/30 ML UDC PO SCH (08:13)
[2019-03-23] MEDS: MethylPREDNISolone 40 MG/ML VIAL IVP SCH ×2 (08:14→15:24)
[2019-03-23] MEDS: *HR* OxyCODONE/APAP 7.5/325 TABLET PO SCH ×4 (08:27→20:19)
[2019-03-23 09:44] LABS: Hemoglobin 8.9 g/dL (12.9-16.9); Mean Corpuscular Volume 87.9 fL (83.0-100.0); Mean Platelet Volume 9.2 fL (9.4-12.4); Platelet Count 358 K/mcL (140-400); Red Blood Count 3.07 M/mcL (4.19-5.50); Red Cell Distribution Width 13.8 % (11.5-14.5); White Blood Count 11.8 K/mcL (4.3-11.1)
[2019-03-23 10:05] LABS: Calcium 8.9 mg/dL (8.6-10.3); Potassium 4.3 mEq/L (3.5-5.1)
[2019-03-23 10:18] LABS: Sodium, Urine 15.6 mEq/L
[2019-03-23] MEDS: cefTRIAXone 2,000 MG in Water for inj. (sterile) 20 ML IVPB SCH (13:23)
[2019-03-23] MEDS: Azithromycin 500 MG in 0.9 % Sodium Chloride 250 ML IVPB SCH (13:25)
[2019-03-23] MEDS ORDERED: 0.9 % Sodium Chloride 1,000 ML IVC SCH (15:00)
[2019-03-23] MEDS: 0.9 % Sodium Chloride 1,000 ML IVC SCH (16:04)
[2019-03-23] MEDS: Bumetanide 1 MG/4 ML VIAL IVP SCH (16:58)
[2019-03-23] MEDS: Furosemide 40 MG/4 ML VIAL IVP SCH (16:58)
[2019-03-23] MEDS: Baclofen 10 MG TABLET PO SCH (20:17)
[2019-03-23] MEDS: Levalbuterol Neb 1.25 MG/3 ML IH SCH (21:46)
[2019-03-24] MEDS: MethylPREDNISolone 40 MG/ML VIAL IVP SCH ×3 (00:32→19:25)
[2019-03-24] MEDS: Levalbuterol Neb 1.25 MG/3 ML IH SCH ×4 (03:14→21:10)
[2019-03-24] MEDS: 0.9 % Sodium Chloride 1,000 ML IVC SCH ×2 (04:04→18:50)
[2019-03-24] MEDS: *HR* Heparin 5,000 UNIT/ML VIAL SQ SCH ×3 (06:12→20:37)
[2019-03-24] MEDS: Finasteride 5 MG TABLET PO SCH (07:39)
[2019-03-24] MEDS: amLODIPine 5 MG TABLET PO SCH (07:39)
[2019-03-24] MEDS: BuPROPion SR (12 HR) 150 MG TABLET PO SCH (07:43)
[2019-03-24] MEDS: Aspirin Enteric Coated 81 MG Tablet PO SCH (07:43)
[2019-03-24] MEDS: Cyanocobalamin (B-12) 1,000 MCG TABLET PO SCH (07:43)
[2019-03-24] MEDS: Isosorbide MONOnitrate (24 HR) 30 MG TAB.ER.24H PO SCH (07:43)
[2019-03-24] MEDS: Famotidine 20 MG TABLET PO SCH ×2 (07:44→20:36)
[2019-03-24] MEDS: Bumetanide 1 MG/4 ML VIAL IVP SCH ×2 (07:45→16:24)
[2019-03-24] MEDS: Insulin LISPRO 300 UNITS/3 ML VIAL SQ SCH ×4 (07:45→20:38)
[2019-03-24] MEDS: Furosemide 40 MG/4 ML VIAL IVP SCH ×2 (07:45→16:24)
[2019-03-24] MEDS: Lactulose Oral Soln 20 GM/30 ML UDC PO SCH ×2 (07:45→20:37)
[2019-03-24] MEDS: *HR* OxyCODONE/APAP 7.5/325 TABLET PO SCH ×4 (07:46→20:36)
[2019-03-24] MEDS: Levalbuterol Neb 1.25 MG/3 ML IH PRN (07:56)
[2019-03-24 11:14] LABS: Mycoplasma pneumoniae IgG 0.3 U/L (<=0.09)
[2019-03-24] MEDS: cefTRIAXone 2,000 MG in Water for inj. (sterile) 20 ML IVPB SCH (14:10)
[2019-03-24] MEDS: Azithromycin 500 MG in 0.9 % Sodium Chloride 250 ML IVPB SCH (14:10)
[2019-03-24] MEDS: carvediloL 25 MG TABLET PO SCH (16:23)
[2019-03-24 17:02] LABS: Hematocrit 30.5 % (37.5-50.1); Hemoglobin 10.3 g/dL (12.9-16.9); Mean Corpuscular HGB Conc 33.8 g/dL (31.6-35.5); Mean Corpuscular Hemoglobin 29.3 pg (28.0-33.3); Mean Corpuscular Volume 86.9 fL (83.0-100.0); Mean Platelet Volume 9.8 fL (9.4-12.4); Platelet Count 425 K/mcL (140-400); Red Blood Count 3.51 M/mcL (4.19-5.50); Red Cell Distribution Width 13.5 % (11.5-14.5); White Blood Count 14.9 K/mcL (4.3-11.1)
[2019-03-24 17:12] LABS: Potassium 4.1 mEq/L (3.5-5.1)
[2019-03-24] MEDS: Baclofen 10 MG TABLET PO SCH (20:36)
[2019-03-24] MEDS: Sennosides/Docusate Sodium TABLET PO SCH (21:10)
[2019-03-25] MEDS: Levalbuterol Neb 1.25 MG/3 ML IH SCH ×5 (04:23→21:39)
[2019-03-25] MEDS: *HR* Heparin 5,000 UNIT/ML VIAL SQ SCH ×3 (05:04→21:10)
[2019-03-25 05:33] LABS: Hematocrit 30.7 % (37.5-50.1); Hemoglobin 10.2 g/dL (12.9-16.9); Mean Corpuscular HGB Conc 33.2 g/dL (31.6-35.5); Mean Corpuscular Hemoglobin 28.9 pg (28.0-33.3); Mean Platelet Volume 9.3 fL (9.4-12.4); Platelet Count 374 K/mcL (140-400); Red Blood Count 3.53 M/mcL (4.19-5.50); Red Cell Distribution Width 13.3 % (11.5-14.5); White Blood Count 14.5 K/mcL (4.3-11.1)
[2019-03-25 05:49] LABS: Calcium 8.8 mg/dL (8.6-10.3); Potassium 3.8 mEq/L (3.5-5.1)
[2019-03-25] MEDS: Insulin LISPRO 300 UNITS/3 ML VIAL SQ SCH ×4 (07:42→21:18)
[2019-03-25] MEDS ORDERED: Cefdinir 300 MG CAPSULE PO SCH (09:00)
[2019-03-25] MEDS: 0.9 % Sodium Chloride 1,000 ML IVC SCH ×2 (10:21→23:30)
[2019-03-25] MEDS: Bumetanide 1 MG/4 ML VIAL IVP SCH ×2 (10:22→17:28)
[2019-03-25] MEDS: Furosemide 40 MG/4 ML VIAL IVP SCH ×2 (10:22→17:28)
[2019-03-25] MEDS: Lactulose Oral Soln 20 GM/30 ML UDC PO SCH ×2 (10:23→21:11)
[2019-03-25] MEDS: Aspirin Enteric Coated 81 MG Tablet PO SCH (10:23)
[2019-03-25] MEDS: *HR* OxyCODONE/APAP 7.5/325 TABLET PO SCH ×4 (10:23→21:07)
[2019-03-25] MEDS: Cyanocobalamin (B-12) 1,000 MCG TABLET PO SCH (10:23)
[2019-03-25] MEDS: Isosorbide MONOnitrate (24 HR) 30 MG TAB.ER.24H PO SCH (10:23)
[2019-03-25] MEDS: Sennosides/Docusate Sodium TABLET PO SCH ×2 (10:24→21:09)
[2019-03-25] MEDS: Famotidine 20 MG TABLET PO SCH ×2 (10:24→21:08)
[2019-03-25] MEDS: Azithromycin 250 MG TABLET PO SCH (10:24)
[2019-03-25] MEDS: BuPROPion SR (12 HR) 150 MG TABLET PO SCH (10:24)
[2019-03-25] MEDS: predniSONE 20 MG TABLET PO SCH (10:24)
[2019-03-25] MEDS: amLODIPine 5 MG TABLET PO SCH (10:24)
[2019-03-25] MEDS: carvediloL 25 MG TABLET PO SCH ×2 (10:24→17:28)
[2019-03-25] MEDS: Finasteride 5 MG TABLET PO SCH (10:24)
[2019-03-25] MEDS: Cefdinir 300 MG CAPSULE PO SCH (12:21)
[2019-03-25] MEDS: Fluticasone Propionate Nasal 50 MCG/SPRAY BOTTLE NS SCH (14:32)
[2019-03-25 20:52] LABS: Bilirubin,Urine Negative (Negative); Blood,Urine Negative (Negative); Clarity,Urine Clear (Clear); Glucose,Urine (UA) Normal (Normal); Ketones,Urine Negative (Negative); Leukocyte Esterase,Urine Negative (Negative); Nitrite,Urine Negative (Negative); Protein,Urine Negative (Neg-Trace); Urobilinogen,Urine Normal (Normal)
[2019-03-25 20:55] LABS: Color,Urine Light Yellow (Yellow)
[2019-03-25] MEDS: Baclofen 10 MG TABLET PO SCH (21:10)
[2019-03-25] MEDS: Levalbuterol Neb 1.25 MG/3 ML IH PRN (22:40)
[2019-03-26] MEDS: Levalbuterol Neb 1.25 MG/3 ML IH SCH ×3 (03:35→15:32)
[2019-03-26 06:20] LABS: Hematocrit 31.2 % (37.5-50.1); Hemoglobin 10.6 g/dL (12.9-16.9); Mean Corpuscular Hemoglobin 29.1 pg (28.0-33.3); Mean Corpuscular Volume 85.7 fL (83.0-100.0); Mean Platelet Volume 9.9 fL (9.4-12.4); Platelet Count 372 K/mcL (140-400); Red Blood Count 3.64 M/mcL (4.19-5.50); Red Cell Distribution Width 13.1 % (11.5-14.5); White Blood Count 12.9 K/mcL (4.3-11.1)
[2019-03-26] MEDS: *HR* Heparin 5,000 UNIT/ML VIAL SQ SCH ×2 (06:21→13:10)
[2019-03-26 06:39] LABS: Calcium 9.1 mg/dL (8.6-10.3); Potassium 3.5 mEq/L (3.5-5.1)
[2019-03-26] MEDS: Insulin LISPRO 300 UNITS/3 ML VIAL SQ SCH ×3 (07:57→17:24)
[2019-03-26] MEDS: Bumetanide 1 MG/4 ML VIAL IVP SCH ×2 (08:30→17:20)
[2019-03-26] MEDS: BuPROPion SR (12 HR) 150 MG TABLET PO SCH (08:30)
[2019-03-26] MEDS: Finasteride 5 MG TABLET PO SCH (08:30)
[2019-03-26] MEDS: Azithromycin 250 MG TABLET PO SCH (08:30)
[2019-03-26] MEDS: Famotidine 20 MG TABLET PO SCH (08:30)
[2019-03-26] MEDS: Sennosides/Docusate Sodium TABLET PO SCH (08:31)
[2019-03-26] MEDS: Cefdinir 300 MG CAPSULE PO SCH (08:31)
[2019-03-26] MEDS: amLODIPine 5 MG TABLET PO SCH (08:31)
[2019-03-26] MEDS: Isosorbide MONOnitrate (24 HR) 30 MG TAB.ER.24H PO SCH (08:31)
[2019-03-26] MEDS: Aspirin Enteric Coated 81 MG Tablet PO SCH (08:31)
[2019-03-26] MEDS: carvediloL 25 MG TABLET PO SCH ×2 (08:31→17:19)
[2019-03-26] MEDS: predniSONE 20 MG TABLET PO SCH (08:31)
[2019-03-26] MEDS: Furosemide 40 MG/4 ML VIAL IVP SCH ×2 (08:32→17:20)
[2019-03-26] MEDS: Cyanocobalamin (B-12) 1,000 MCG TABLET PO SCH (08:32)
[2019-03-26] MEDS: Lactulose Oral Soln 20 GM/30 ML UDC PO SCH (08:32)
[2019-03-26] MEDS: *HR* OxyCODONE/APAP 7.5/325 TABLET PO SCH ×3 (08:33→17:28)
[2019-03-26] MEDS: Fluticasone Propionate Nasal 50 MCG/SPRAY BOTTLE NS SCH (08:38)
[2019-03-26 11:08] VITALS: BP 102/50
[2019-03-26] MEDS: 0.9 % Sodium Chloride 1,000 ML IVC SCH (11:26)
[2019-03-26] MEDS ORDERED: Cefdinir 300 MG CAPSULE PO SCH (21:00)
== END 2019-03-26 17:58 | disposition home health service (06) | DRG 194 ==
LOC: EMEROOPIK 09:29 → INPPIK 09:29
PROVIDERS: ADMIT Family Medicine; ATTEND Family Medicine